=== PATIENT | female | born 1955 | race Hispanic/Latino ===

== ENCOUNTER 2018-05-29 06:59 | Day surgery (SDC) | payer MEDICARE ==
[2014-11-03 12:15] VITALS: BMI 31.5
[2018-05-29] MEDS ORDERED: Propofol 10 mg/ml Inj (20 ML) ONE ×2 (08:12→08:38)
[2018-05-29] MEDS ORDERED: Sodium Chloride 0.9% 1,000 ML IV SCH (08:15)
[2018-05-29 09:37] VITALS: BP 110/61; PULSE 65; RESP 18; TEMP 97.7; O2SAT 97
== END 2018-05-29 10:30 | disposition home or self-care (01) ==
LOC: ENDO 06:59
PROVIDERS: ATTEND Internal Medicine Gastroenterology
DX: Z12.11 Encounter for screening for malignant neoplasm of colon (principal); Z85.048 Personal history of other malignant neoplasm of rectum, rectosigmoid junction, and anus; D12.5 Benign neoplasm of sigmoid colon; K62.1 Rectal polyp; K64.1 Second degree hemorrhoids; K21.0 Gastro-esophageal reflux disease with esophagitis; K29.50 Unspecified chronic gastritis without bleeding; Z88.8 Allergy status to other drugs, medicaments and biological substances; Z91.013 Allergy to seafood
CPT/HCPCS: 43239; 45380; 82948; 88305; 88312; 88342; J2001; J2704; J7030; J7040